=== PATIENT | male | born 2000 | race Two or more races ===

== ENCOUNTER 2022-10-29 11:23 | Emergency (ER) | payer SELFPAY ==
[~2022-10-29] VITALS: Ht 175.3 cm; Wt 88.9 kg
[2022-10-29] MEDS ORDERED: IOHEXOL 300 MG/ML 100ML BOTTLE IJ ONE (13:39)
[2022-10-29 14:26] LABS: Hematocrit 50.7 % (41.0-53.0); Hemoglobin 17.1 g/dL (13.5-17.5); Mean Corpuscular Hgb Conc. 33.8 g/dL (32.0-36.0); Mean Corpuscular Volume 85.8 fL (80.0-100.0); Red Blood Cells 5.91 10^6/uL (4.5-5.90); Red Cell Distribution Width 13.2 % (11.8-14.3); White Blood Cell 27.7 10^3/uL (4.4-10.8)
[2022-10-29] MEDS ORDERED: CLINDAMYCIN 600MG IV 50 ML IV ONE ×2 (15:00→17:45)
[2022-10-29] MEDS ORDERED: LACTATED RINGER'S 1,000 ML IV ONE (15:00)
[2022-10-29] MEDS ORDERED: BENZOCAINE (DENTAL) 20 % SPRAY 60ML MT ONE (15:00)
[2022-10-29] MEDS ORDERED: KETOROLAC TROMETH 30 MG/ML 1ML VIAL IV ONE (15:00)
[2022-10-29] MEDS ORDERED: CEFTRIAXONE SODIUM 2 GM in D5W 5% 100 ML IV ONE (15:00)
[2022-10-29] MEDS ORDERED: LIDOCAINE W/ EPINEPHRINE 1% 20ML VIAL IJ ONE (15:00)
[2022-10-29 15:13] LABS: Basophils % (manual) 0 (0.0-2.0); Blast Cells 0; Eosinophils % (manual) 0 (0-7); Metamyelocytes % 0; Monocytes % (manual) 0 (0-12); Myelocytes % 0; Promyelocytes % 0; Reactive Lymphocytes 0
[2022-10-29 15:40] LABS: Band Neutrophils % (manual) 1; Lymphocytes % (manual) 14 (10.0-50.0)
[2022-10-29 16:30] LABS: Albumin 4.1 g/dL (3.4-5.0); Calcium 9.5 mg/dL (8.5-10.1); Potassium 3.9 mmol/L (3.5-5.1)
[2022-10-29 16:33] LABS: BUN/Creatinine Ratio 18.7 (10.0-20.0); Bilirubin, Total 1.3 mg/dL (0.2-1.0); Total Protein 9.4 g/dL (6.4-8.2)
[2022-10-29] MEDS ORDERED: CLIN300C70 PO (17:12)
[2022-10-29] MEDS: CLINDAMYCIN 300MG IV 50 ML IV SCH ×2 (18:46→19:05)
[2022-10-29] MEDS ORDERED: DOXY-286 PO (20:19)
[2022-10-29] MEDS ORDERED: CHL12OR MT (20:19)
[2022-10-29 20:30] VITALS: BP 139/77
== END 2022-10-29 20:48 | disposition home or self-care (01) ==
LOC: ER 11:23
DX: J36 Peritonsillar abscess (principal); F12.10 Cannabis abuse, uncomplicated; Z88.0 Allergy status to penicillin
CPT/HCPCS: 36415; 42700; 70491; 80053; 85007; 85027; 87205; 96361; 96365; 96375; 96376; 99285; J0696; J1885; J3490; J7060; Q9967